=== PATIENT | male | born 1995 | race Two or more races ===

== ENCOUNTER 2021-05-10 17:01 | Emergency (ER) | payer OTHER, SELFPAY ==
--- NOTE | ~2021-05-10 | XR_ITS ---
EXAMINATION: 1. LEFT HAND. 2. LEFT WRIST. 3. LEFT FOREARM. 4. LEFT ELBOW. CLINICAL INFORMATION: Injury. Pain. COMPARISON: None TECHNIQUE: 1. Left hand. 3 views 2. Left wrist. 4 views 3. Left forearm. 2 views 4. Left elbow. 3 views. FINDINGS: 1. Left hand. No fracture. No dislocation. Bone and joint are normal. No soft tissue abnormality. 2. Left wrist. No fracture. No dislocation. Bone and joint are normal. No soft tissue abnormality. 3. Left forearm. No fracture. No dislocation. Bone and joint are normal. No soft tissue abnormality. 4. Left elbow. No fracture. No dislocation. Bone and joint are normal. No soft tissue abnormality. XR/XR hand LT min 3V IMPRESSION: 1. Left hand. Normal left hand. 2. Left wrist. Normal left wrist. 3. Left forearm. Normal left forearm. 4. Left elbow. Normal left elbow.
--- NOTE | ~2021-05-10 | XR_ITS ---
EXAMINATION: 1. LEFT HAND. 2. LEFT WRIST. 3. LEFT FOREARM. 4. LEFT ELBOW. CLINICAL INFORMATION: Injury. Pain. COMPARISON: None TECHNIQUE: 1. Left hand. 3 views 2. Left wrist. 4 views 3. Left forearm. 2 views 4. Left elbow. 3 views. FINDINGS: 1. Left hand. No fracture. No dislocation. Bone and joint are normal. No soft tissue abnormality. 2. Left wrist. No fracture. No dislocation. Bone and joint are normal. No soft tissue abnormality. 3. Left forearm. No fracture. No dislocation. Bone and joint are normal. No soft tissue abnormality. 4. Left elbow. No fracture. No dislocation. Bone and joint are normal. No soft tissue abnormality. XR/XR wrist LT 2V IMPRESSION: 1. Left hand. Normal left hand. 2. Left wrist. Normal left wrist. 3. Left forearm. Normal left forearm. 4. Left elbow. Normal left elbow.
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
[2021-05-10 17:07] VITALS: BP 127/88; PULSE 73; RESP 18; TEMP 36.7; O2SAT 99; BMI 20.7
[2021-05-10] MEDS: Ibuprofen 600 MG TABLET PO (17:13)
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
== END 2021-05-10 18:53 | disposition home or self-care (01) ==
LOC: HO.ED 18:29
PROVIDERS: Emergency Provider Emergency Medicine
DX: S40.022A Contusion of left upper arm, initial encounter (principal); M79.622 Pain in left upper arm; V19.40XA Pedal cycle driver injured in collision with unspecified motor vehicles in traffic accident, initial encounter; Y93.55 Activity, bike riding; Y92.410 Unspecified street and highway as the place of occurrence of the external cause; Y99.9 Unspecified external cause status
CPT/HCPCS: 73080; 73090; 73100; 73130; 99283

== ENCOUNTER 2021-11-11 19:06 | Emergency (ER) | payer OTHER, SELFPAY ==
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
[2021-11-11 19:19] VITALS: BP 174/100; PULSE 112; RESP 20; TEMP 36.9; O2SAT 99; BMI 25.0
[2021-11-11 20:09] VITALS: BP 168/105
--- NOTE | 2021-11-11 20:59 | PC.NURSE ---
PT REQUESTING PAIN MEDICATION TYLENOL AND MOTRIN OFFERED PT DECLINED AND WILL WAIT TILL DR SEE THEM.
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
[2021-11-11] MEDS: traMADoL HCL 50 MG TABLET PO (21:58)
--- NOTE | 2021-11-11 22:31 | PC.NURSE ---
PT ROAD RASH TO RIGHT HAND CLEANED AND DSDS APPLIED.
== END 2021-11-11 23:13 | disposition home or self-care (01) ==
PROVIDERS: Emergency Provider Emergency Medicine
DX: S50.311A Abrasion of right elbow, initial encounter (principal); S09.90XA Unspecified injury of head, initial encounter; S00.93XA Contusion of unspecified part of head, initial encounter; M79.641 Pain in right hand; M79.601 Pain in right arm; M79.604 Pain in right leg; V13.5XXA Pedal cycle passenger injured in collision with car, pick-up truck or van in traffic accident, initial encounter; Y93.9 Activity, unspecified; Y92.410 Unspecified street and highway as the place of occurrence of the external cause; Y99.9 Unspecified external cause status
CPT/HCPCS: 73080; 73120; 73552; 73562; 73600; 99283; 99284

== ENCOUNTER 2023-06-03 23:47 | Emergency (ER) | payer SELFPAY ==
--- NOTE | ~2023-06-03 | XR_ITS ---
EXAMINATION: XR PELVIS CLINICAL INFORMATION: Pain. COMPARISON: None available. TECHNIQUE: AP view of the pelvis. FINDINGS: No fracture. Hip joint spaces are maintained. Alignment is anatomic. Sacroiliac joints and pubic symphysis are normal. No abnormal soft tissue calcifications. XR/XR pelvis 1-2V IMPRESSION: No significant abnormality.
[2023-06-03 23:54] VITALS: BP 135/88; PULSE 61; RESP 18; TEMP 36.4; O2SAT 98; BMI 24.4
--- NOTE | 2023-06-04 01:48 | ED_ITS ---
HPI - General Adult General Chief complaint: Abdominal Pain Stated complaint: side pain Time Seen by Provider: 06/04/23 01:45 Source: patient Mode of arrival: ambulatory Limitations: no limitations History of Present Illness HPI narrative: 28-year-old male came in for evaluation of right-sided lower back pain ( disagree with triage nurse patient has no abdominal pain ), patient declines any strenuous activity or heavy lifting or injury to R low back area. No fever, no chills, no nausea, no vomiting, no dysuria, no frequency urination, no blood in the urine, normal bowel movement, passing gas. Related Data Previous Rx's Medication Instructions Recorded ibuprofen 600 mg tablet 600 mg PO TID PRN pain #20 tabs 11/11/21 Allergies Allergy/AdvReac Type Severity Reaction Status Date / Time No Known Allergies Allergy Verified 06/03/23 23:59 Review of Systems 2 Review of Systems: All other systems are reviewed and are negative Constitutional: Reports as per HPI and Reports no additional constitutional complaints Eyes: Reports as per HPI and Reports no additional eye complaints Reports system reviewed and no additional complaints, except as documented Cardiovascular: Reports as per HPI and Reports no additional cardiovascular complaints Respiratory: Reports as per HPI and Reports no additional respiratory complaints Gastrointestinal: Reports as per HPI and Reports no additional gastrointestinal complaints Genitourinary: Reports no additional female genitourinary complaints Musculoskeletal: Reports no additional musculoskeletal complaints Skin/Breast: Reports system reviewed and no additional complaints, except as docu Psychiatric: Reports no additional psychiatric complaints Endocrine: Reports no additional endocrine complaints Hematologic/Lymphatic: Reports no additional hematologic/lymphatic complaints Allergic/Immunologic: Reports no additional allergic/immunologic complaints Reports system reviewed and no additional complaints, except as documented and Reports Abnormal speech present [facility] Past Medical History Medical History No pertinent past medical history Social History Social History Use of substances other than those prescribed or required for medical reasons: Yes Substance Use Type: Marijuana Advance Directives: No Advance Directives Information Provided: No Physical Exam ED Vital Signs: Vital Signs - 24 hr 06/03/23 23:54 Temperature 97.6 F Pulse Rate 61 Respiratory Rate 18 Blood Pressure 135/88 Pulse Oximetry 98 Oxygen Delivery Method Room Air BMI result Body Mass Index 24.4 Vital signs have been reviewed and appear to be correct. Blood pressure elevated. Heart rate normal. Respiratory rate normal. Temperature normal. Oxygen saturation normal. Appearance: Alert. Oriented X3. No acute distress. Head: Normal external exam. Normocephalic. Atraumatic. No James signs noted. No raccoon eyes noted Eyes: PERRLA. EOMI. Conjunctiva and sclera normal. Eyelids normal. ENT: TM's Normal. Pharynx normal. Uvula midline. Moist mucous membranes. No trismus noted. No drooling noted. No muffled voice noted. Neck: Normal inspection. Neck supple. FROM. No adenopathy. Thyroid Normal. No meningeal signs. No neck mass noted. CVS: Normal heart rate and rhythm. Heart sound normal. No murmurs noted. Pulses normal throughout. Respiratory: No respiratory distress. Painless inspiration. Breath sounds normal. No wheezes/rales/rhonchi noted. Chest nontender. No accessory muscle usage noted or decreased air movement noted. Abdomen: Soft and nontender. Bowel sounds normal in all 4 quadrants. No distention noted. No organomegaly noted. No visible injury noted. Back: No CVA tenderness. Full range of motion noted. R Sacroiliac joint tenderness, no step-off, no deformity. Skin: Skin warm and dry. Normal skin color. Normal skin turgor. No rashes/lesions/lacerations noted. Extremities: No lower extremity edema. Extremities exhibit normal range of motion. Extremities nontender. Neuro: Oriented X 3. Cranial nerve exam: II-XII are grossly intact No motor deficit. No sensory deficit. Reflexes normal. Medications Administered Discontinued Medications Generic Name Dose Route Start Last Admin Trade Name Freq PRN Reason Stop Dose Admin Ibuprofen 600 mg 06/04/23 01:55 06/04/23 02:35 Ibuprofen 600 Mg Tablet PO 06/04/23 01:56 600 mg ONCE ONE Administration Medical Decision Making Medical Decision Making MDM Narrative: 28-year-old male otherwise healthy no trauma, has unremarkable labs and UA reproducible tenderness over the right SI joint. Differential Diagnosis Differential Diagnoses: The differential diagnosis associated with the presentation includes ( Back pain, kidney stone, SI arthritis, electrolyte abnormality, severe anemia.) Admission/Observation Consideration of admission/observation: Escalation of care including admission/observation considered Lab Data 06/04/23 02:17 06/04/23 02:17 Labs: Lab Results 06/04/23 06/04/23 Range/Units 02:17 02:20 WBC 9.9 (4.8-10.8) X10*3/uL RBC 5.27 (4.60-5.80) X10*6/uL Hgb 15.5 (14.0-18.0) g/dl Hct 45.6 (42.0-52.0) % MCV 86.5 (80.0-98.0) fL MCH 29.4 (27.0-33.0) pg MCHC 34.0 (31.0-36.0) g/dl RDW 12.0 (11.0-16.0) % Plt Count 238 (160-400) X10*3/uL MPV 11.4 (9.4-12.4) fL Immature Gran % (Auto) 0.3 (0.0-0.4) % Neut % (Auto) 66.5 (45-73) % Lymph % (Auto) 22.7 (20-40) % [place] % (Auto) 9.3 (2-11) % Eos % (Auto) 0.5 (0-4) % Baso % (Auto) 0.7 (0-2) % Lymph # (Auto) 2.2 (1.2-4.9) X10*3/uL [place] # (Auto) 0.9 (0.1-1.2) X10*3/uL Eos # (Auto) 0.1 (0.0-0.4) X10*3/uL Baso # (Auto) 0.1 (0.0-0.2) X10*3/uL Abs Immat Gran (auto) 0.03 (0.00-0.03) X10*3/uL Absolute Neuts (auto) 6.6 (2.0-8.3) x10*3/uL Absolute Nucleated RBC 0.000 (0.0-0.012) X10*3/uL Nucleated RBC % (auto) 0.0 (0.0-0.2) /100WBC Sodium 139 (135-145) mmol/L Potassium 3.8 (3.3-5.1) mmol/L Chloride 100 (96-108) mmol/L Carbon Dioxide 27 (22-29) mmol/L Anion Gap 16 (12-20) BUN 16 (9-16) mg/dL Creatinine 0.84 (0.5-1.4) mg/dL Estim Creat Clear Calc 119.2 Estimated GFR > 60 Random Glucose 84 (60-115) mg/dL Calcium 10.1 (8.4-10.2) mg/dL Total Bilirubin 0.4 (0.0-1.0) mg/dL AST 15 (5-37) U/L ALT 11 (0-40) U/L Alkaline Phosphatase 91 (39-117) U/L Total Protein 8.3 H (6.5-8.0) g/dL Albumin 4.5 (3.5-5.0) g/dL Urine Color Yellow Urine Appearance Clear Urine pH 5.5 (5.0-9.0) Ur Specific [place] 1.015 (1.005-1.025) Urine Protein Negative (Neg-Trace) mg/dL Urine Glucose (UA) Negative (Negative) mg/dL Urine Ketones Negative (Negative) mg/dL Urine Blood Negative (Negative) Urine Nitrite Negative (Negative) Ur Leukocyte Esterase Negative (Negative) Urine RBC 0-2 (0-2) /HPF Urine WBC 0-5 (0-5) /HPF Ur Squamous Epith Cells 0-2 (0-2) /HPF Urine Bacteria None Seen (None Seen) Hyaline Casts 0-2 (0-2) /LPF Discharge Plan Discharge Clinical Impression: Sacroiliac (ligament) sprain Patient Disposition: Home, Self-Care Instructions: Leg Sprain (ED) Prescriptions: No Action ibuprofen 600 mg tablet 600 mg PO TID PRN (Reason: pain) Qty: 20 0RF Stand Alone Forms: Work/School Release
[2023-06-04 02:26] LABS: Basophils Absolute Auto 0.1 X10*3/uL (0.0-0.2); Basophils Percent Auto 0.7 % (0-2); Eosinophils Absolute Auto 0.1 X10*3/uL (0.0-0.4); Eosinophils Percent Auto 0.5 % (0-4); Hematocrit 45.6 % (42.0-52.0); Hemoglobin 15.5 g/dl (14.0-18.0); Imm Gran Abs Auto 0.03 X10*3/uL (0.00-0.03); Imm Gran Pct Auto 0.3 % (0.0-0.4); Lymphocytes Absolute Auto 2.2 X10*3/uL (1.2-4.9); Lymphocytes Percent Auto 22.7 % (20-40); MANUAL DIFF FLAG NO; Mean Corpuscular Hemoglobin 29.4 pg (27.0-33.0); Mean Corpuscular Volume 86.5 fL (80.0-98.0); Mean Platelet Volume 11.4 fL (9.4-12.4); Monocytes Absolute Auto 0.9 X10*3/uL (0.1-1.2); Monocytes Percent Auto 9.3 % (2-11); Neutrophils Absolute Auto 6.6 x10*3/uL (2.0-8.3); Neutrophils Percent Auto 66.5 % (45-73); Platelet Count 238 X10*3/uL (160-400); Red Blood Count 5.27 X10*6/uL (4.60-5.80); White Blood Count 9.9 X10*3/uL (4.8-10.8)
[2023-06-04 02:27] LABS: Appearance Urine Clear; Color Urine Yellow; Glucose Urine UA Negative (Negative); Leukocyte Esterase Urine Negative (Negative); Nitrite Urine Negative (Negative); PH 5.5 (5.0-9.0); Specific Gravity - Urine 1.015 (1.005-1.025); Urine Blood Negative (Negative); Urine Ketones Negative (Negative); Urine Protein Negative (Neg-Trace)
[2023-06-04 02:32] LABS: Bacteria Urine None Seen (None Seen); Hyaline Casts Urine 0-2 /LPF (0-2); RBC Urine 0-2 /HPF (0-2); Squamous Epithelial Cell Urine 0-2 /HPF (0-2); WBC Urine 0-5 /HPF (0-5)
[2023-06-04] MEDS: Ibuprofen 600 MG TABLET PO (02:35)
[2023-06-04 02:39] LABS: Alanine Aminotransferase 11 U/L (0-40); Albumin Level 4.5 g/dL (3.5-5.0); Alkaline Phosphatase 91 U/L (39-117); Anion Gap 16 (12-20); Aspartate Amino Transferase 15 U/L (5-37); Bilirubin Total 0.4 mg/dL (0.0-1.0); Blood Urea Nitrogen 16 mg/dL (9-16); Calcium 10.1 mg/dL (8.4-10.2); Carbon Dioxide 27 mmol/L (22-29); Chloride 100 mmol/L (96-108); Creatinine Clr Calc Pharmacy 119.2; Estimated Glomerular Filt Rate > 60; Glucose Random 84 mg/dL (60-115); Potassium 3.8 mmol/L (3.3-5.1); Sodium 139 mmol/L (135-145); Total Protein 8.3 g/dL (6.5-8.0)
--- NOTE | 2023-06-04 02:41 | PC.NURSE ---
pt interchange agent into hospital attire, labs, urine collected and sent, medicated per Mar.
[2023-06-04 05:04] VITALS: BP 100/52; PULSE 56; RESP 17; TEMP 36.6; O2SAT 98
--- NOTE | 2023-06-04 05:18 | PC.NURSE ---
Reviewed discharge instructions with pt. pt verbalized understanding, no sign of distress.
== END 2023-06-04 05:20 | disposition home or self-care (01) ==
PROVIDERS: Emergency Provider Emergency Medicine
DX: S33.6XXA Sprain of sacroiliac joint, initial encounter (principal); M46.1 Sacroiliitis, not elsewhere classified; R10.2 Pelvic and perineal pain; X58.XXXA Exposure to other specified factors, initial encounter; Y93.9 Activity, unspecified; Y92.9 Unspecified place or not applicable; Y99.9 Unspecified external cause status; Z79.899 Other long term (current) drug therapy
CPT/HCPCS: 36415; 72170; 80053; 81001; 85025; 99283; 99284